=== PATIENT | male | born 1950 | race Caucasian/White ===

== ENCOUNTER → 2025-06-15 15:48 | Outpatient (REF) | payer OTHER, SELFPAY | LOC: RCS 15:48 | PROVIDERS: FAMILY PHYSICIAN Internal Medicine | DX: I10 Essential (primary) hypertension (principal); I65.23 Occlusion and stenosis of bilateral carotid arteries; I34.1 Nonrheumatic mitral (valve) prolapse | CPT/HCPCS: 93306 ==